=== PATIENT | male | born 1955 | race African-American/Black ===

== ENCOUNTER 2023-07-14 19:54 | Emergency (ER) | payer OTHER ==
[2023-07-14 20:44] LABS: #Basophils 0.1 10x3/uL (0.0-0.2); #Eosinphils 0.3 10x3/uL (0.0-0.5); #Neutrophils 6.2 10x3/uL (1.5-8.4); %Basophils 0.7 % (0.0-2.0); %Eosinophils 3.5 % (0.0-6.0); %Lymphocytes 12.8 % (18.0-47.0); %Monocytes 11.8 % (0.0-10.0); Hematocrit 32.5 % (38.8-50.0); Hemoglobin 10.7 g/dL (13.5-17.5); Mean Corpuscular HGB CONC 32.9 g/dL (32.0-36.0); Mean Corpuscular Hemoglobin 30.3 pg (27.0-33.0); Mean Corpuscular Volume 92.1 fl (81.2-95.1); Mean Platelet Volume 8.7 fl (7.4-10.4); Platelet Count 370 10x3/uL (150-450); RBC Distribution Width 12.2 % (11.5-14.5); Red Blood Cell (RBC) Count 3.53 10x6/uL (4.32-5.72); White Blood Cell (WBC) Count 8.7 10x3/uL (3.5-10.5)
[2023-07-14 20:56] LABS: Albumin 3.5 g/dL (3.4-4.8); Anion Gap 11 mmol/L (10-20); BUN (Urea Nitrogen) 12 mg/dL (8.4-25.7); Bilirubin, Total 0.6 mg/dL (0.2-1.2); Calc. Creatinine Clearance 0 mL/min (70-130); Calcium 8.2 mg/dL (7.8-10.44); Carbon Dioxide 27 mmol/L (23-31); Chloride 102 mmol/L (98-107); Estimated GFR 68; Globulin 2.9 g/dL (2.4-3.5); Glucose 87 mg/dL (80-115); Potassium 4.2 mmol/L (3.5-5.1); Protein, Total 6.4 g/dL (5.8-8.1); Sodium 136 mmol/L (136-145)
[2023-07-14 20:57] LABS: ALT (SGPT) 8 U/L (8-55); AST (SGOT) 14 U/L (5-34); Alkaline Phosphatase 64 U/L (40-110)
[2023-07-14 21:04] LABS: Troponin I Less than 0.010 ng/mL (< 0.028)
== END 2023-07-14 22:45 ==
LOC: EEVIPCON 19:54 → CSHERS 19:54
DX: S09.90XA Unspecified injury of head, initial encounter (principal); K21.9 Gastro-esophageal reflux disease without esophagitis; I10 Essential (primary) hypertension; J44.9 Chronic obstructive pulmonary disease, unspecified; E78.5 Hyperlipidemia, unspecified; Z79.899 Other long term (current) drug therapy; Z79.82 Long term (current) use of aspirin; W22.8XXA Striking against or struck by other objects, initial encounter
CPT/HCPCS: 70450; 71045; 72125; 80053; 84484; 85025; 93005; 93010; 96360

== ENCOUNTER 2024-09-02 06:27 | Emergency (ER) | payer OTHER ==
[2024-09-02] MEDS ORDERED: Ipratropium/Albuterol 3 ML NEB ONE ×2 (07:02→09:08)
[2024-09-02] MEDS ORDERED: cefTRIAXone (ROCEPHIN) 2 GM VIAL ONE (07:38)
[2024-09-02] MEDS ORDERED: methylPREDNISolone Sod Succ/PF 125 MG/2 ML VIAL ONE (07:38)
[2024-09-02 07:44] LABS: #Basophils 0.03 10x3/uL (0.0-0.2); #Eosinophils 0.56 10x3/uL (0.0-0.5); #Monocytes 0.42 10x3/uL (0.0-1.1); #Neutrophils 4.51 10x3/uL (1.5-8.4); %Basophils 0.4 % (0.0-2.0); %Lymphocytes 21.3 % (18.0-47.0); %Neutrophils 64.2 % (40.0-75.0); Hematocrit 36.4 % (38.8-50.0); Mean Corpuscular HGB CONC 30.2 g/dL (32.0-36.0); Mean Corpuscular Hemoglobin 26.6 pg (27.0-33.0); Mean Corpuscular Volume 87.9 fL (81.2-95.1); Mean Platelet Volume 9.5 fL (7.4-10.4); Platelet Count 389 10x3/uL (150-450); RBC Distribution Width 15.9 % (11.5-14.5); Red Blood Cell (RBC) Count 4.14 10x6/uL (4.32-5.72)
[2024-09-02 08:00] LABS: ALT (SGPT) 14 U/L (8-55); AST (SGOT) 16 U/L (5-34); Albumin 3.9 g/dL (3.4-4.8); Alkaline Phosphatase 59 U/L (40-110); Anion Gap 13 mmol/L (10-20); BUN (Urea Nitrogen) 9 mg/dL (8.4-25.7); Bilirubin, Total 0.8 mg/dL (0.2-1.2); Calc. Creatinine Clearance 0 mL/min (70-130); Carbon Dioxide 27 mmol/L (23-31); Chloride 103 mmol/L (98-107); Estimated GFR 93; Globulin 2.8 g/dL (2.4-3.5); Glucose 90 mg/dL (80-115); Potassium 3.9 mmol/L (3.5-5.1); Protein, Total 6.7 g/dL (5.8-8.1); Sodium 139 mmol/L (136-145); Troponin I 0.034 ng/mL (< 0.028)
[2024-09-02] MEDS ORDERED: Aspirin Chewable 81 MG TAB ONE (08:27)
[2024-09-02] MEDS ORDERED: Azithromycin 500 MG VIAL ONE (08:28)
[2024-09-02] MEDS ORDERED: Magnesium 2 GM/50 ML BAG (IN WATER) ONE (09:04)
[2024-09-02] MEDS ORDERED: Albuterol 2.5 MG (0.5 mL) NEB ONE (09:10)
== END 2024-09-02 12:36 | disposition short-term general hospital (02) ==
LOC: CSHERS 06:27 → EEVIPCON 06:27 → CSHERS 12:36
DX: J44.1 Chronic obstructive pulmonary disease with (acute) exacerbation (principal); R07.9 Chest pain, unspecified; R09.02 Hypoxemia; R79.89 Other specified abnormal findings of blood chemistry; I10 Essential (primary) hypertension; Z79.899 Other long term (current) drug therapy; Z79.82 Long term (current) use of aspirin
CPT/HCPCS: 36415; 71045; 80053; 83605; 83880; 84484; 85025; 87040; 87428; 93005; 96374; 96375; J0456; J0696; J2919; J3475; J7611; J7620

== ENCOUNTER 2025-10-11 16:28 | Emergency (ER) | payer OTHER ==
[2025-10-11 17:09] LABS: #Basophils 0.06 10x3/uL (0.0-0.2); #Eosinophils 0.34 10x3/uL (0.0-0.5); #Monocytes 0.44 10x3/uL (0.0-1.1); #Neutrophils 2.63 10x3/uL (1.5-8.4); %Basophils 1.3 % (0.0-2.0); %Eosinophils 7.5 % (0.0-6.0); %Lymphocytes 23.0 % (18.0-47.0); %Monocytes 9.7 % (0.0-10.0); %Neutrophils 58.3 % (40.0-75.0); Hematocrit 37.5 % (38.8-50.0); Hemoglobin 11.7 g/dL (13.5-17.5); Mean Corpuscular Hemoglobin 27.4 pg (27.0-33.0); Mean Corpuscular Volume 87.8 fL (81.2-95.1); Platelet Count 366 10x3/uL (150-450); Red Blood Cell (RBC) Count 4.27 10x6/uL (4.32-5.72); White Blood Cell (WBC) Count 4.52 10x3/uL (3.5-10.5)
[2025-10-11 17:37] LABS: ALT (SGPT) 11 U/L (Less than 45); AST (SGOT) 18 U/L (11-34); Albumin 4.0 g/dL (3.1-4.5); Alkaline Phosphatase 64 U/L (40-110); Anion Gap 11 mmol/L (10-20); BUN (Urea Nitrogen) 11 mg/dL (8.4-25.7); Bilirubin, Total 0.6 mg/dL (0.3-1.2); Calc. Creatinine Clearance 0 mL/min (70-130); Calcium 8.9 mg/dL (7.8-10.44); Carbon Dioxide 29 mmol/L (23-31); Chloride 105 mmol/L (98-107); Globulin 2.8 g/dL (2.4-3.5); Glucose 84 mg/dL (83-110); Potassium 4.4 mmol/L (3.5-5.1); Sodium 141 mmol/L (136-145)
[2025-10-11 17:42] LABS: Troponin I Less than 0.010 ng/mL (< 0.028)
== END 2025-10-11 18:31 ==
LOC: EEVIPCON 16:28 → CSHERS 16:28
DX: J44.1 Chronic obstructive pulmonary disease with (acute) exacerbation (principal); I10 Essential (primary) hypertension
CPT/HCPCS: 36415; 71045; 80053; 83880; 84484; 85025; 93005; 94640; 96374; J2919